=== PATIENT | female | born 1950 ===

== ENCOUNTER 2017-09-28 09:33 | Day surgery (SDC) | payer OTHER, MEDICARE ==
--- NOTE | 2017-09-27 21:29 | GHP ---
[f rep st] PRE-OP HISTORY AND PHYSICAL CURRENT COMPLAINT: Left shoulder pain. HISTORY OF PRESENT ILLNESS: The patient is a 67-year-old female with a several- month history of left shoulder pain worsening with use with time. MRI exam reveals significant anterior acromial curve and hook, with a partial-thickness rotator cuff tear and biceps tendinosis with labral tearing. She wishes to have surgery in order to resolve the problem. ALLERGIES: She has no drug allergies. CURRENT MEDICATIONS: Include alprazolam, atorvastatin, cyclobenzaprine, fenofibrate, gabapentin, lisinopril, metformin, pantoprazole, ranitidine, sertraline, tizanidine, valaciclovir, Zolpidem. CURRENT MEDICAL PROBLEMS: Include arthritis, high cholesterol, reflux, high blood pressure, heart problems, sleep apnea, thyroid issues. PRIOR SURGERIES: Include orthopedic surgery x1. SOCIAL HISTORY: She is a former smoker. Does not drink alcohol. PHYSICAL EXAM: HEENT: Patient's pupils equal, round, reactive to light. CHEST : Clear to auscultation. HEART: Regular rate and rhythm. ABDOMEN: Soft and nontender. LEFT SHOULDER: Reveals good range of motion with 5/5 strength. Weakness associated with pain to supraspinatus test. She has an equivocal FAIR test. MRI reveals partial thickness rotator cuff tear with biceps tendinitis, anterior acromial curve, anterior and posterior labral tearing with mild glenohumeral arthritis. ASSESSMENT AND PLAN: Patient is status post a left shoulder impingement with labral tearing and mild arthritis. The plan is to take her to the operating room and undergo a left shoulder scope with subacromial decompression. /[id number]/MODL MTDD
[~2017-09-28 09:33] MED LIST: MEPERIDINE 25 MG/0.5 ML AMP IVP PRN
[2017-09-28] MEDS ORDERED: LIDOCAINE 1% 2 ML INJ ONE (10:31)
[2017-09-28] MEDS ORDERED: CEFAZOLIN 2 GM/DEXTROSE/100 ML BAG IV ONE (10:32)
[2017-09-28] MEDS ORDERED: MIDAZOLAM 2 MG/2 ML VIAL ONE (11:52)
[2017-09-28] MEDS ORDERED: fentaNYL 100 MCG/2 ML INJ ONE ×2 (12:03→13:45)
[2017-09-28] MEDS ORDERED: LIDOCAINE 2% 100 MG/5 ML SYR ONE (12:03)
[2017-09-28] MEDS ORDERED: DEXAMETHASONE 4 MG/ML VIAL ONE (12:03)
[2017-09-28] MEDS ORDERED: ONDANSETRON 4 MG/2 ML VIAL ONE (12:03)
[2017-09-28] MEDS ORDERED: PROPOFOL 200 MG/20 ML VIAL ONE (12:04)
[2017-09-28] MEDS ORDERED: CALCIUM CHLORIDE 1 GM/10 ML INJ ONE (12:07)
[2017-09-28] MEDS ORDERED: THROMBIN (BOVINE) 5,000 UNIT VIAL TP ONE (12:07)
[2017-09-28] MEDS ORDERED: PHENYLEPHRINE HCL 100 MCG/ML SYR ONE (12:22)
[2017-09-28] MEDS ORDERED: GLYCOPYRROLATE 0.2 MG/1 ML VIAL ONE (12:47)
[2017-09-28] MEDS ORDERED: HYDROmorphONE/DILAUDID 1 MG/ML INJ ONE (12:56)
[2017-09-28] MEDS ORDERED: ONDANSETRON 4 MG/2 ML VIAL IVP PRN (12:58)
[2017-09-28] MEDS ORDERED: HYDROmorphONE/DILAUDID 1 MG/ML INJ IVP PRN (12:58)
[2017-09-28] MEDS ORDERED: NALOXONE HCL 0.4 MG/ML INJ IVP PRN (12:58)
[2017-09-28] MEDS ORDERED: fentaNYL 100 MCG/2 ML INJ IVP PRN (12:58)
[2017-09-28] MEDS ORDERED: DEXAMETHASONE 4 MG/ML VIAL IVP PRN (12:58)
[2017-09-28] MEDS ORDERED: LABETALOL HCL 5 MG/ML 20 ML MDV IVP PRN (12:58)
[2017-09-28] MEDS ORDERED: HYDROCODONE/APAP 5/325 TAB PO PRN (12:58)
[2017-09-28] MEDS ORDERED: ACETAMINOPHEN 500 MG TAB PO PRN (12:58)
[2017-09-28] MEDS ORDERED: PROMETHAZINE HCL 25 MG/ML INJ IVP PRN (12:58)
[2017-09-28] MEDS ORDERED: OXYCODONE/APAP 5/325 TAB PO PRN (12:58)
--- NOTE | 2017-09-28 22:30 | GOP ---
[f rep st] OPERATIVE REPORT DATE OF OPERATION: 09/28/2017 SURGEON: Nataly Henderson MD ANESTHESIA: Endotracheal intubation. PREOPERATIVE DIAGNOSIS: Left shoulder impingement syndrome with labral tear and osteoarthritis. POSTOPERATIVE DIAGNOSIS: Left shoulder impingement syndrome with labral tear and osteoarthritis with extensive grade 2 chondral changes to the glenoid and partial tearing of the subscapularis and supra spinatus. PROCEDURE PERFORMED: Left shoulder arthroscopy with debridement of the rotator cuff to include the s ubscapularis and supraspinatus as well as labral debridement, biceps anchor debridement, subacromial decompression, distal clavicle excision. FINDINGS: INDICATIONS: This is a 67-year-old female with a several-month history of left shoulder pain worseni ng with use with time despite multiple conservative measures. MRI revealed a very thin rotator cuff, a significant anterior acromial curve and hook as well as extensive tearing of the labrum. She wish es to have surgery in order to resolve the problem. DESCRIPTION OF PROCEDURE: The patient was brought to the operating room after the left side had been identified as the correct side by the patient, nurse and physician. Once in the operating room, she was placed under general anesthesia using endotracheal intubation. Once asleep, she was placed in a beach chair position with the left upper extremity sterilely prepped and draped in the usual fashion using GSI solution. Once prepped and draped, incision was made on the posterolateral corner of the acromion with the camera introduced without difficulty. Inspection of the joint revealed extensive t earing of the superior, anterior and inferior portions of the labrum as well as significant and exten sive grade 2 chondral changes throughout the glenoid. Further inspection revealed partial-thickness tear at the superior portion of the subscapularis as well as some fraying of the supraspinatus. Ther efore, using in-to-out technique, an anterior portal was made superolateral to the coracoid process w ith 6 x 75 mm threaded cannula placed through the anterior portal. A 3.5 mm smooth shaver was maeve t through the anterior portal and used to debride and debulk tears of the superior, anterior and infe rior portions of the glenoid labrum, the biceps anchor; chondroplasty of the glenoid, particularly at the anteroinferior portion; and debridement of the rotator cuff at the subscapularis and the suprasp inatus. Once completed, all instruments were removed from the glenohumeral joint and using the same portal sites, reintroduced in the subacromial space. A third incision was made 2 cm lateral to the a cromial process in line with the posterior cortex of the clavicle with the camera switched to the lat eral portal. Alternating using arthroscopic Bovie tip and a shaver, was used to remove the abundant amount of tissue in the subacromial space as well as to remove soft tissue from the undersurface of t he acromion. She was noted to have a fairly large spur off the anterior portion of the acromion. Ac romionizer bur was brought through the posterior portal and used to remove that spur until achieving a flat ceiling. Attention was then turned to the distal clavicle, it was noted have a large inferior spur, and this was also removed using a combination of shaver and bur. Once creating a flat ceiling , attention was turned to the rotator cuff. Thorough examination was done found no [id number] gh full-thickness tears within the rotator cuff although there were areas of fraying which were debri ded using shaver. Once completed, all instruments were removed from the subacromial space, with 30 c c of Marcaine infused in the subacromial space. The 3 portal sites were closed using 3-0 nylon sutur e in a [id number] type stitch with plasma gel placed within the subacromial space. All wounds w ere then dressed with Xeroform, 4 x 4, and Tegaderm. She was completely undraped in the operating ro om, had a sling placed on the left upper extremity. She was woken up, extubated, transferred onto a stretcher, and sent to recovery room in good condition. /[id number]/MODL
--- NOTE | 2017-09-29 14:56 | GHP ---
[facility] Patient Name: ALIA SOLIS Rpt#: [id number] Unit Number: [id number] Attending/ER Physician: Nataly Henderson MD Patient Type: PRE SDC Adm Date/Source: 09/20/17 PHY Discharge Date: Primary Carrier: MEDICARE OUTPATIENT Signed PRE-OP HISTORY AND PHYSICAL CURRENT COMPLAINT: Left shoulder pain. HISTORY OF PRESENT ILLNESS: The patient is a 67-year-old female with a several-month history of left shoulder pain worsening with use with time. MRI exam reveals significant anterior acromial curve and hook, with a partial-thickness rotator cuff tear and biceps tendinosis with labral tearing. She wishes to have surgery in order to resolve the problem. ALLERGIES: She has no drug allergies. CURRENT MEDICATIONS: Include alprazolam, atorvastatin, cyclobenzaprine, fenofibrate, gabapentin, lisinopril, metformin, pantoprazole, ranitidine, sertraline, tizanidine, valaciclovir, Zolpidem. CURRENT MEDICAL PROBLEMS: Include arthritis, high cholesterol, reflux, high blood pressure, heart problems, sleep apnea, thyroid issues. PRIOR SURGERIES: Include orthopedic surgery x1. SOCIAL HISTORY: She is a former smoker. Does not drink alcohol. PHYSICAL EXAM: HEENT: Patient's pupils equal, round, reactive to light. CHEST: Clear to auscultation. HEART: Regular rate and rhythm. ABDOMEN: Soft and nontender. LEFT SHOULDER: Reveals good range of motion with 5/5 strength. Weakness associated with pain to supraspinatus ____ test. She has an equivocal FAIR test. MRI reveals partial thickness rotator cuff tear with biceps tendinitis, anterior acromial curve, anterior and posterior labral tearing with mild glenohumeral arthritis. ASSESSMENT AND PLAN: Patient is status post a left shoulder impingement with labral tearing and mild arthritis. The plan is to take her to the operating room and undergo a left shoulder scope with subacromial decompression. /[id number]/MODL NOTE: At the time of staffing coordinator of this report, there may have been blank(s) to be edited by the dictating clinician. By signing this report, I attest that I have reviewed any blanks in the document, and have either corrected them and/or have no further information to add. Nataly Henderson MD 09/28/17 0721 <Electronically signed by Nataly Henderson MD> 45 T: NESTOR 09/27/[id number] CC: Alia Rogers NP; Nataly Henderson MD
== END 2017-09-28 15:20 | disposition home or self-care (01) ==
LOC: FSGY 09:33
PROVIDERS: ATTEND Orthopaedic Surgery
PROC: 0RNK4ZZ Release Left Shoulder Joint, Percutaneous Endoscopic Approach (ICD-10-PCS; principal; 2017-09-28 12:00)
PROC: 3E0U3GC Introduction of Other Therapeutic Substance into Joints, Percutaneous Approach (ICD-10-PCS; principal; 2017-09-28 12:00)
PROC: 0PBB4ZZ Excision of Left Clavicle, Percutaneous Endoscopic Approach (ICD-10-PCS; principal; 2017-09-28 12:00)
PROC: 0MB24ZZ Excision of Left Shoulder Bursa and Ligament, Percutaneous Endoscopic Approach (ICD-10-PCS; principal; 2017-09-28 12:00)
DX: M75.42 Impingement syndrome of left shoulder (principal); M75.102 Unspecified rotator cuff tear or rupture of left shoulder, not specified as traumatic; M75.22 Bicipital tendinitis, left shoulder; M13.812 Other specified arthritis, left shoulder; E78.2 Mixed hyperlipidemia; I08.3 Combined rheumatic disorders of mitral, aortic and tricuspid valves; I10 Essential (primary) hypertension; E11.9 Type 2 diabetes mellitus without complications; K21.9 Gastro-esophageal reflux disease without esophagitis; G47.33 Obstructive sleep apnea (adult) (pediatric); Z87.891 Personal history of nicotine dependence
CPT/HCPCS: 0232T; 29823; 29824; 29826; J0690; J1100; J1170; J1200; J2001; J2250; J2370; J2405; J2704; J3010